=== PATIENT | female | born 1970 | race Caucasian/White ===

== ENCOUNTER 2017-08-04 11:32 | Emergency (ER) | payer BC, OTHER ==
[2017-08-04] MEDS ORDERED: Sodium Chloride 0.9% 10 ML Syringe FLUSH PRN (11:47)
[2017-08-04] MEDS ORDERED: Aspirin 81 MG Tab.Chew PO ONE (11:55)
--- NOTE | 2017-08-04 12:06 | EDM.PDOC ---
ED HPI GENERAL MEDICAL PROBLEM - General Chief Complaint: Chest Pain Stated Complaint: IRREGULAR EKG/SENT FROM [facility] Time Seen by Provider: 08/04/17 11:41 Source of Information: Reports: Patient History Limitations: Reports: No Limitations - History of Present Illness INITIAL COMMENTS - FREE TEXT/NARRATIVE: 46-year-old female sent over from the clinic for evaluation and treatment of an abnormal EKG. Patient reports that this all started around 6:30 this morning. She states that she did not feel well. Reports feeling dizzy, lightheaded and nauseous. She also had chest pain that is located in the center of her chest. She states that currently it is a 3 out of 10. At its worse it is a 5 out of 10. Does not radiate anywhere into her neck, back or arms. States that when it does become more severe it lasts only a few seconds before disappearing. She states that she feels like she cannot take a deep breath. No treatment prior to arrival in the ER. Patient works at [employer]. She asked her primary care if she would be able to be seen today. She then had an EKG done which showed ventricular trigeminy. She has never had an EKG done before and therefore has no prior EKG for comparison. She's never been told she any abnormal heart rhythms. Patient is currently on thyroid medications. She does question if her thyroid is off. She reports she's lost about 35 pounds since March; due to her significant other. Patient also is on Ativan but did not take any today. She has not taken aspirin prior to arrival. Cardiac history in her family including her father and her grandfather. No tobacco usage. 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: none Chest Pain Score (Numeric/FACES): 5 - Related Data Allergies Allergy/AdvReac Type Severity Reaction Status Date / Time No Known Allergies Allergy Verified 08/04/17 11:49 Home Meds: Home Meds LORazepam [Ativan] 0.5 mg PO Q8H PRN 08/04/17 [History] Levothyroxine 112 mcg PO DAILY 08/04/17 [History] Meloxicam [Mobic] 15 mg PO DAILY 08/04/17 [History] Scopolamine [Transderm-Scop] 1 patch TOP Q3D 08/04/17 [History] Venlafaxine [Effexor] 75 mg PO DAILY 08/04/17 [History] Past Medical History Psychiatric History: Reports: Anxiety, Depression Endocrine/Metabolic History: Reports: Hypothyroidism - Past Surgical History Female Surgical History: Reports: Hysterectomy Social & Family History - Tobacco Use Smoking Status *Q: Never Smoker - Caffeine Use Caffeine Use: Reports: Coffee Other Caffeine Use: one cup daily - Recreational Drug Use Recreational Drug Use: No ED ROS GENERAL - Review of Systems Review Of Systems: See Below Constitutional: Reports: Weight Loss (35 lbs last 3 months) Respiratory: Reports: Shortness of Breath, Hemoptysis Cardiovascular: Reports: Chest Pain (central chest), Lightheadedness, Palpitations GI/Abdominal: Reports: Nausea. Denies: Abdominal Pain, Vomiting Musculoskeletal: Denies: Neck Pain, Arm Pain Neurological: Denies: Syncope ED EXAM, GENERAL - Physical Exam Exam: See Below Exam Limited By: No Limitations General Appearance: Alert, WD/WN, No Apparent Distress Ears: Normal External Exam Nose: Normal Inspection Throat/Mouth: Normal Inspection, Normal Voice, No Airway Compromise Respiratory/Chest: No Respiratory Distress, Lungs Clear, Normal Breath Sounds Cardiovascular: Normal Peripheral Pulses, No Murmur, Other (regularily irregular ) Peripheral Pulses: 2+: Radial (L), Radial (R), Posterior Tibial (L), Posterior Tibial (R), Dorsalis Pedis (L), Dorsalis Pedis (R) GI/Abdominal: Soft, Non-Tender Extremities: Normal Inspection Neurological: Alert, Oriented, Normal Cognition Psychiatric: Normal Affect, Normal Mood Skin Exam: Warm, Dry, Normal Color EKG INTERPRETATION EKG Date: 08/04/17 Time: 11:40 Rhythm: Other (ventricular trigeminy) Rate (Beats/Min): 82 [place]ige: Normal P-Wave: Present QRS: Normal ST-T: Normal QT: Normal EKG Interpretation Comments: NSR at 83 bpm. Ventricular trigeminy. No acute ST changes. Reviewed by myself and Dr. Marcelle Ricci. Course - Vital Signs Last Recorded V/S: Last Vital Signs Temp 36.3 C 08/04/17 11:47 Pulse 81 08/04/17 11:47 Resp 20 08/04/17 11:47 BP 146/75 H 08/04/17 11:47 Pulse Ox 100 08/04/17 11:47 - Orders/Labs/Meds Orders: Active Orders 24 hr Category Date Time Status EKG 12 Lead [EKG Documentation Completion] [RC] STAT Care 08/04/17 11:47 Active Orthostatic Vital Signs [RC] ASDIRECTED Care 08/04/17 11:55 Active Peripheral IV Care [RC] . DIRECTED Care 08/04/17 11:48 Active FREE T3 [REF] Stat Lab 08/04/17 12:25 Received Peripheral IV Insertion Adult [OM.PC] Routine Oth 08/04/17 11:47 Ordered Labs: Laboratory Tests 08/04/17 08/04/17 08/04/17 Range/Units 12:25 12:25 12:25 WBC 4.78 (3.98-10.04) K/mm3 RBC 4.89 (3.98-5.22) M/mm3 Hgb 14.4 (11.2-15.7) gm/L Hct 42.6 (34.1-44.9) % MCV 87.1 (79.4-94.8) fl MCH 29.4 (25.6-32.2) pg MCHC 33.8 (32.2-35.5) g/dl RDW Std Deviation 38.8 (36.4-46.3) fL Plt Count 260 (182-369) K/mm3 MPV 10.6 (9.4-12.3) fl Neut % (Auto) 52.7 (34.0-71.1) % Lymph % (Auto) 37.7 (19.3-51.7) % [place] % (Auto) 9.4 (4.7-12.5) % Eos % (Auto) 0 L (0.7-5.8) Baso % (Auto) 0.0 L (0.1-1.2) % Neut # (Auto) 2.52 (1.56-6.13) K/mm3 Lymph # (Auto) 1.80 (1.18-3.74) K/mm3 [place] # (Auto) 0.45 H (0.24-0.36) K/mm3 Eos # (Auto) 0.00 L (0.04-0.36) K/mm3 Baso # (Auto) 0.00 L (0.01-0.08) K/mm3 D-Dimer, Quantitative 0.36 (0.19-0.50) mg/L Sodium 142 (136-145) mEq/L Potassium 3.7 (3.5-5.1) mEq/L Chloride 105 (98-107) mEq/L Carbon Dioxide 26 (21-32) mEq/L Anion Gap 14.7 (5-15) BUN 12 (7-18) mg/dL Creatinine 0.7 (0.55-1.02) mg/dL Est Cr Clr Drug Dosing 95.58 mL/min Estimated GFR (MDRD) > 60 (>60) mL/min BUN/Creatinine Ratio 17.1 (14-18) Glucose 110 H (74-106) mg/dL Calcium 9.5 (8.5-10.1) mg/dL Magnesium 2.1 (1.8-2.4) mg/dl Total Bilirubin 0.6 (0.2-1.0) mg/dL AST 13 L (15-37) U/L ALT 17 (14-59) U/L Alkaline Phosphatase 76 (46-116) U/L Troponin I < 0.017 (0.00-0.056) ng/mL Total Protein 7.9 (6.4-8.2) g/dl Albumin 3.9 (3.4-5.0) g/dl Globulin 4.0 gm/dL Albumin/Globulin Ratio 1.0 (1-2) Free T4 (0.76-1.46) ng/dL TSH 3rd Generation 0.050 L (0.358-3.74) uIU/mL 08/04/17 Range/Units 13:57 WBC (3.98-10.04) K/mm3 RBC (3.98-5.22) M/mm3 Hgb (11.2-15.7) gm/L Hct (34.1-44.9) % MCV (79.4-94.8) fl MCH (25.6-32.2) pg MCHC (32.2-35.5) g/dl RDW Std Deviation (36.4-46.3) fL Plt Count (182-369) K/mm3 MPV (9.4-12.3) fl Neut % (Auto) (34.0-71.1) % Lymph % (Auto) (19.3-51.7) % [place] % (Auto) (4.7-12.5) % Eos % (Auto) (0.7-5.8) Baso % (Auto) (0.1-1.2) % Neut # (Auto) (1.56-6.13) K/mm3 Lymph # (Auto) (1.18-3.74) K/mm3 [place] # (Auto) (0.24-0.36) K/mm3 Eos # (Auto) (0.04-0.36) K/mm3 Baso # (Auto) (0.01-0.08) K/mm3 D-Dimer, Quantitative (0.19-0.50) mg/L Sodium (136-145) mEq/L Potassium (3.5-5.1) mEq/L Chloride (98-107) mEq/L Carbon Dioxide (21-32) mEq/L Anion Gap (5-15) BUN (7-18) mg/dL Creatinine (0.55-1.02) mg/dL Est Cr Clr Drug Dosing mL/min Estimated GFR (MDRD) (>60) mL/min BUN/Creatinine Ratio (14-18) Glucose (74-106) mg/dL Calcium (8.5-10.1) mg/dL Magnesium (1.8-2.4) mg/dl Total Bilirubin (0.2-1.0) mg/dL AST (15-37) U/L ALT (14-59) U/L Alkaline Phosphatase (46-116) U/L Troponin I (0.00-0.056) ng/mL Total Protein (6.4-8.2) g/dl Albumin (3.4-5.0) g/dl Globulin gm/dL Albumin/Globulin Ratio (1-2) Free T4 1.49 H (0.76-1.46) ng/dL TSH 3rd Generation (0.358-3.74) uIU/mL Meds: Medications Discontinued Medications Generic Name Dose Route Start Last Admin Trade Name Freq PRN Reason Stop Dose Admin Aspirin 324 mg 08/04/17 11:55 08/04/17 12:09 Aspirin PO 08/04/17 11:56 324 mg ONETIME ONE Administration Sodium Chloride 10 ml 08/04/17 11:47 08/04/17 12:10 Saline Flush FLUSH 10 ml ASDIRECTED PRN Administration Keep Vein Open - Radiology Interpretation Free Text/Narrative:: Chest: Frontal view of the chest was obtained. Comparison: No prior study. Heart size appears at the upper limits of normal. Mild tortuosity of the thoracic aorta is seen. Lungs are clear. Bony structures are grossly intact. Impression: 1. Heart size at the upper limits of normal. Nothing acute is otherwise seen on frontal chest x-ray. - Re-Assessments/Exams Free Text/Narrative Re-Assessment/Exam: 08/04/17 13:58 I reviewed the labs and imaging with the patient. Free T3 and T4 ordered due to her hyperthyroidism. I will discharge her home at this t Encouraged follow-up with family practice provider for medication adjustments. Discharge instructions as document. kori. Departure - Departure Time of Disposition: 13:57 Disposition: Home, Self-Care 01 Condition: Fair Clinical Impression: Hyperthyroidism Instructions: Hypothyroidism Referrals: Kailey Jett NP [Primary Care Provider] - Forms: ED Department Discharge Additional Instructions: Follow-up with your primary care provider next week. I recommend you contact your primary care provider today to discuss if you need any medications over the weekend. Your TSH today was low at 0.050. You have a free T3 and T4 pending at this time. Recommend discussing a stress test given your family history with your primary care provide next week. Please return to the ER for symptoms change or worsen. - My Orders Last 24 Hours: My Active Orders 08/04/17 11:47 EKG 12 Lead [EKG Documentation Completion] [RC] STAT Peripheral IV Insertion Adult [OM.PC] Routine 08/04/17 11:48 Peripheral IV Care [RC] . DIRECTED 08/04/17 11:55 Orthostatic Vital Signs [RC] ASDIRECTED 08/04/17 12:25 FREE T3 [REF] Stat - Assessment/Plan Last 24 Hours: My Active Orders 08/04/17 11:47 EKG 12 Lead [EKG Documentation Completion] [RC] STAT Peripheral IV Insertion Adult [OM.PC] Routine 08/04/17 11:48 Peripheral IV Care [RC] . DIRECTED 08/04/17 11:55 Orthostatic Vital Signs [RC] ASDIRECTED 08/04/17 12:25 FREE T3 [REF] Stat
--- NOTE | 2017-08-04 13:24 | CR ---
Chest: Frontal view of the chest was obtained. Comparison: No prior study. Heart size appears at the upper limits of normal. Mild tortuosity of the thoracic aorta is seen. Lungs are clear. Bony structures are grossly intact. Impression: 1. Heart size at the upper limits of normal. Nothing acute is otherwise seen on frontal chest x-ray. Diagnostic code #1
== END 2017-08-04 14:30 | disposition home or self-care (01) ==
LOC: JD.ED 11:32
DX: E05.90 Thyrotoxicosis, unspecified without thyrotoxic crisis or storm (principal); E03.9 Hypothyroidism, unspecified; F32.9 Major depressive disorder, single episode, unspecified; Z79.899 Other long term (current) drug therapy
CPT/HCPCS: 36415; 71045; 80053; 83735; 84439; 84443; 84481; 84484; 85025; 85379; 93005; 99284; A9270; J7050; 93010

== ENCOUNTER 2018-07-17 21:37 | Emergency (ER) | payer OTHER ==
--- NOTE | 2018-07-17 22:22 | EDM.PDOC ---
ED HPI GENERAL MEDICAL PROBLEM - General Chief Complaint: Cardiovascular Problem Stated Complaint: heart palpitations Time Seen by Provider: 07/17/18 22:00 Source of Information: Reports: Patient History Limitations: Reports: No Limitations - History of Present Illness INITIAL COMMENTS - FREE TEXT/NARRATIVE: 47 yo F w/ h/o hypothyroid on levothyroxine comes in today for heart palpitations that were keeping her awake tonight with 3/10 chest pain. She states she first started experiencing this palpitations about 3 months ago and has seen a community assistant and heart/lung specialist. She was on a 48H Holter monitor 2 weeks ago which found 96k extra heart beats and this past had a 24H Holter monitor, which she does not know the results of yet. The ultimate plan with her community assistant is to increase her Flecainide until she can get an ablation. However, she is scheduled to donate a kidney to her father on October 08 and was told to wait to have the ablation until after that. Until then , she is to avoid caffeine and alcohol. She denies any new stress or anxiety. She did take a Trazodone for sleep tonight, and is currently feeling it "kick in " and her symptoms have already improved without any intervention in the ED. At this time, she would like to have a workup but is also realizing that she is likely OK to go home as her symptoms have basically resolved. Her PCP is Dr. Garcia. Field Care Advocate is Dr. Matos. - Related Data Allergies Allergy/AdvReac Type Severity Reaction Status Date / Time No Known Allergies Allergy Verified 02/09/18 10:45 Home Meds: Home Meds LORazepam [Ativan] 0.5 mg PO Q8H PRN 08/04/17 [History] Levothyroxine 83 mcg PO DAILY 08/04/17 [History] Meloxicam [Mobic] 15 mg PO DAILY 08/04/17 [History] Scopolamine [Transderm-Scop] 1 patch TOP Q3D 08/04/17 [History] Venlafaxine [Effexor] 150 mg PO DAILY 08/04/17 [History] Venlafaxine HCl [Venlafaxine ER] 75 mg PO DAILY #10 cap.er.24h 02/09/18 [Rx] Past Medical History Psychiatric History: Reports: Anxiety, Depression Endocrine/Metabolic History: Reports: Hypothyroidism Oncologic (Cancer) History: Reports: Cervix - Past Surgical History Female Surgical History: Reports: Hysterectomy Social & Family History - Caffeine Use Caffeine Use: Reports: Coffee Other Caffeine Use: one cup daily ED ROS GENERAL - Review of Systems Review Of Systems: ROS reveals no pertinent complaints other than HPI. ED EXAM, GENERAL - Physical Exam Exam: See Below Exam Limited By: No Limitations General Appearance: Alert, WD/WN, No Apparent Distress Eye Exam: Bilateral Eye: EOMI, Normal Inspection, PERRL Ears: Normal External Exam, Hearing Grossly Normal Head: Atraumatic, Normocephalic Respiratory/Chest: No Respiratory Distress, Lungs Clear, Normal Breath Sounds, No Accessory Muscle Use, Chest Non-Tender Cardiovascular: Normal Peripheral Pulses, Regular Rate, Rhythm, No Edema, No Gallop, No JVD, No Murmur, No Rub Neurological: Alert, Oriented, CN II-XII Intact, Normal Cognition, Normal Gait, Normal Reflexes, No Motor/Sensory Deficits Psychiatric: Normal Affect, Normal Mood Skin Exam: Warm, Dry, Intact, Normal Color, No Rash EKG INTERPRETATION EKG Date: 07/17/18 Time: 22:00 Rhythm: NSR Rate (Beats/Min): 70 [place]: Normal P-Wave: Present QRS: Normal ST-T: Normal QT: Normal EKG Interpretation Comments: low voltage Course - Vital Signs Last Recorded V/S: Last Vital Signs Temp 98.3 F 07/17/18 21:54 Pulse 72 07/17/18 21:54 Resp 18 07/17/18 21:54 BP 132/88 07/17/18 21:54 Pulse Ox 100 07/17/18 21:54 - Orders/Labs/Meds Orders: Active Orders 24 hr Category Date Time Status EKG Documentation Completion [RC] ASDIRECTED Care 07/17/18 21:59 Active Chest 1V Frontal [CR] Stat Exams 07/17/18 22:20 Taken EKG 12 Lead [EK] Stat Ther 07/17/18 21:59 Ordered Labs: Laboratory Tests 07/17/18 Range/Units 22:30 Troponin I < 0.017 (0.00-0.056) ng/mL - Re-Assessments/Exams Free Text/Narrative Re-Assessment/Exam: EKG, CXR, Troponin ordered 07/17/18 22:[address] Johansen and myself- nothing acute seen 07/17/18 22:[address] Johansen and myself- nothing acute seen. 07/17/18 23:18 Troponin <0.017 At this time, cardiac workup is negative and pt feels better and is stable enough to go home. No intervention needed at this time. Recommend f/u with PCP and community assistant. Departure - Departure Time of Disposition: 23:19 Disposition: Home, Self-Care 01 Condition: Good Clinical Impression: Palpitations Instructions: Palpitations, [id number] Referrals: Fior Tyson MD [Primary Care Provider] - Forms: ED Department Discharge Additional Instructions: You were seen in the ED today for palpitations that prevented you from falling asleep. This is a chronic condition that you are already seeing a community assistant for and have a plan of treatment. At this time, your cardiac workup was negative for any acute emergency. You are feeling much more comfortable and are able to sleep and no intervention was needed while you were here. Therefore, it is recommended you go home and rest and follow up with your primary care provider, Dr. Garcia, and your community assistant, Dr. Matos, for further follow up and treatment. Please return to ED if new or worsening symptoms. - My Orders Last 24 Hours: My Active Orders 07/17/18 22:20 Chest 1V Frontal [CR] Stat - Assessment/Plan Last 24 Hours: My Active Orders 07/17/18 22:20 Chest 1V Frontal [CR] Stat
--- NOTE | 2018-07-18 06:21 | CR ---
Chest: Portable view of the chest was obtained. Comparison: Prior chest x-ray of 08/04/17. Heart size at the upper limits of normal. Upper mediastinum is normal. Lungs are clear. Bony structures are grossly intact. Impression: 1. Nothing acute is seen on frontal chest x-ray. Diagnostic code #1
== END 2018-07-17 23:30 | disposition home or self-care (01) ==
LOC: JD.ED 21:37
DX: R00.2 Palpitations (principal); F41.9 Anxiety disorder, unspecified; F32.9 Major depressive disorder, single episode, unspecified; E03.9 Hypothyroidism, unspecified; Z79.899 Other long term (current) drug therapy
CPT/HCPCS: 36415; 71045; 71045-26; 84484; 93005; 93010; 99284; 99285-25